=== PATIENT | female | born 1985 | race Caucasian/White ===

== ENCOUNTER → 2017-07-10 | Outpatient (CLI) | payer OTHER ==
[~2017-07-10] MED LIST: IBUP-1222 PO; MEPERIDINE/PF 100 MG/ML ONE; MEPERIDINE/PF 50 MG/ML IM ONE; PREN1TAB60 PO; PROMETHAZINE 25 MG/ML, 1ML IM ONE; PROMETHAZINE 25 MG/ML, 1ML ONE
== END | disposition home or self-care (01) ==
LOC: LDOP 20:44
PROVIDERS: ATTEND Obstetrics & Gynecology
DX: O26.893 Other specified pregnancy related conditions, third trimester (principal); R10.9 Unspecified abdominal pain; Z3A.36 36 weeks gestation of pregnancy
CPT/HCPCS: 59025; 96372; 99211; J2175; J2550; G0463

== ENCOUNTER 2017-07-11 01:44 | Inpatient (IN) | payer OTHER ==
[~2017-07-11] VITALS: Ht 165.1 cm; Wt 110.0 kg
[~2017-07-11 01:44] MED LIST changes: -IBUP-1222 PO; -MEPERIDINE/PF 100 MG/ML ONE; -MEPERIDINE/PF 50 MG/ML IM ONE; -PROMETHAZINE 25 MG/ML, 1ML IM ONE; -PROMETHAZINE 25 MG/ML, 1ML ONE
[2017-07-11] MEDS ORDERED: D5%-LACTATED RINGERS 1,000 ML IV SCH (01:46)
[2017-07-11] MEDS ORDERED: OXYTOCIN 30U/ 0.9% NaCL 500ML 500 ML IV ONE (01:46)
[2017-07-11] MEDS ORDERED: ONDANSETRON 2MG/ML, 2ML IVPush PRN (02:00)
[2017-07-11] MEDS ORDERED: FENTANYL PF 100 MCG/2ML IVPush PRN (02:00)
[2017-07-11] MEDS ORDERED: TERBUTALINE 1 MG/ML, 1ML IVPush PRN ×2 (02:00)
[2017-07-11] MEDS: LACTATED RINGERS 1,000 ML IV SCH ×2 (02:00→02:40)
[2017-07-11] MEDS ORDERED: NEWBORN KIT ONE ×2 (02:00→03:04)
[2017-07-11] MEDS ORDERED: TERBUTALINE 1 MG/ML, 1ML SQ PRN (02:00)
[2017-07-11] MEDS ORDERED: FENTANYL PF 100 MCG/2ML IV PRN (02:00)
[2017-07-11] MEDS ORDERED: CALCIUM CARBONATE 500 MG TAB.CHEW PO PRN (02:00)
[2017-07-11] MEDS ORDERED: MISOPROSTOL 200 MCG TABLET ONE (02:01)
[2017-07-11] MEDS ORDERED: LIDOCAINE 1%, 20ML ONE (02:01)
[2017-07-11] MEDS ORDERED: FENTANYL PF 100 MCG/2ML ONE (02:01)
[2017-07-11] MEDS ORDERED: OXYTOCIN 30U/ 0.9% NaCL 500ML 500 ML ONE ×2 (02:02→04:24)
[2017-07-11 02:09] LABS: HEMATOCRIT 38.3 % (34.6-47.8); HEMOGLOBIN 13.1 g/dL (11.7-16.4); WHITE BLOOD COUNT 20.9 x10^3/uL (3.4-10)
[2017-07-11] MEDS ORDERED: LACTATED RINGERS 1,000 ML IV SCH (02:26)
[2017-07-11] MEDS ORDERED: FENTANYL/BUPIV./NS/PF 250 ML EPIDCONT SCH (02:26)
[2017-07-11] MEDS ORDERED: FENTANYL/BUPIV./NS/PF 250 ML EPIDCONT ONE (02:28)
[2017-07-11] MEDS ORDERED: BUPIVACAINE/PF 0.25% ONE (02:28)
[2017-07-11] MEDS ORDERED: EPHEDRINE 50 MG/ML, 1ML IVPush PRN (02:30)
[2017-07-11] MEDS ORDERED: NALOXONE 0.4 MG/ML, 1ML IVPush PRN (02:30)
[2017-07-11] MEDS ORDERED: LACTATED RINGERS 1,000 ML IVBOLUS PRN (02:30)
[2017-07-11] MEDS: OXYTOCIN 30U/ 0.9% NaCL 500ML 500 ML IV SCH ×2 (04:13→14:13)
[2017-07-11] MEDS ORDERED: ONDANSETRON 2MG/ML, 2ML IV PRN (04:30)
[2017-07-11] MEDS ORDERED: MISOPROSTOL 200 MCG TABLET PR PRN (04:30)
[2017-07-11] MEDS ORDERED: METHYLERGONOVINE 0.2 MG/ML IM PRN (04:30)
[2017-07-11] MEDS ORDERED: ACETAMINOPHEN 325 MG TABLET PO PRN (04:30)
[2017-07-11] MEDS ORDERED: OXYcodone/APAP 5/325MG TABLET PO PRN (04:30)
[2017-07-11] MEDS ORDERED: IBUPROFEN 600 MG TABLET ONE (04:48)
[2017-07-11] MEDS: IBUPROFEN 600 MG TABLET PO PRN ×3 (04:50→18:48)
[2017-07-11 05:40] VITALS: BP 111/63
[2017-07-11 07:55] VITALS: BP 114/78
[2017-07-11] MEDS: DOCUSATE 100 MG CAPSULE PO PRN (08:06)
[2017-07-11] MEDS: PRENATAL VIT/IRON/FA 1 EACH TABLET PO SCH (08:06)
[2017-07-11 11:01] LABS: HEMATOCRIT 34.5 % (34.6-47.8); HEMOGLOBIN 11.5 g/dL (11.7-16.4); WHITE BLOOD COUNT 19.2 x10^3/uL (3.4-10)
[2017-07-11 12:00] VITALS: BP 125/86
[2017-07-11] MEDS ORDERED: ONDANSETRON ODT 4 MG ONE (18:46)
[2017-07-11] MEDS ORDERED: ONDANSETRON ODT 4 MG PO PRN (19:00)
[2017-07-11 20:00] VITALS: BP 139/86
[2017-07-12] MEDS: IBUPROFEN 600 MG TABLET PO PRN ×3 (00:57→15:00)
[2017-07-12 07:15] VITALS: BP 134/85
[2017-07-12] MEDS: PRENATAL VIT/IRON/FA 1 EACH TABLET PO SCH (07:25)
[2017-07-12 20:00] VITALS: BP 97/76
[2017-07-12] MEDS: OXYcodone/APAP 5/325MG TABLET PO PRN (20:17)
[2017-07-12] MEDS: DOCUSATE 100 MG CAPSULE PO PRN (20:19)
[2017-07-13] MEDS ORDERED: IBUP-1222 PO (02:35)
[2017-07-13 07:00] VITALS: BP 114/76
[2017-07-13] MEDS: IBUPROFEN 600 MG TABLET PO PRN ×2 (07:38→19:22)
[2017-07-13] MEDS: PRENATAL VIT/IRON/FA 1 EACH TABLET PO SCH (07:38)
[2017-07-13] MEDS: OXYcodone/APAP 5/325MG TABLET PO PRN ×2 (11:49→19:22)
[2017-07-13] MEDS ORDERED: DIPH,PERTUSS(ACELL),TET VAC/PF NC IM-VACC ONE ×2 (19:12→19:30)
[2017-07-13 19:30] VITALS: BP 122/84
== END 2017-07-13 21:00 | disposition home or self-care (01) | DRG 774 ==
LOC: LDIP 01:44 → 2NW 05:25
PROVIDERS: ADMIT Obstetrics & Gynecology; ATTEND Obstetrics & Gynecology
PROC: 10E0XZZ Delivery of Products of Conception, External Approach (ICD-10-PCS; principal; 2017-07-11)
PROC: 0KQM0ZZ Repair Perineum Muscle, Open Approach (ICD-10-PCS; 2017-07-11)
DX: O62.3 Precipitate labor (principal); O75.3 Other infection during labor; N39.0 Urinary tract infection, site not specified; Z3A.36 36 weeks gestation of pregnancy; Z37.0 Single live birth; O99.824 Streptococcus B carrier state complicating childbirth; O70.1 Second degree perineal laceration during delivery
CPT/HCPCS: 36415; 82803; 85025; 86850; 86900; 90715; J3010; Q0162; J2590; J7120